=== PATIENT | male | born 1960 | race African-American/Black ===

== ENCOUNTER 2020-11-08 20:26 | Emergency (ER) | payer MEDICARE, MEDICAID ==
[~2020-11-08] VITALS: Ht 182.9 cm; Wt 148.0 kg
[2020-11-08] MEDS ORDERED: FAMOTIDINE 20MG/2ML VIAL IV STA (20:58)
[2020-11-08] MEDS ORDERED: SODIUM CHLORIDE 0.9% 1,000 ML IV ONE (21:00)
[2020-11-08] MEDS ORDERED: ONDANSETRON HCL 4MG/2ML INJ IV ONE (21:00)
[2020-11-08] MEDS ORDERED: HYDROCODONE/ACETAMINOPHEN 5/325MG TABLET PO ONE (21:30)
[2020-11-08] MEDS ORDERED: KETOROLAC 60MG/2ML VIAL IM ONE (21:30)
[2020-11-08] MEDS ORDERED: DIAZEPAM 5 MG TABLET PO ONE (22:45)
[2020-11-08 23:02] LABS: CLARITY URINE CLEAR (CLEAR); COLOR URINE DARK YELLOW (YELLOW); KETONES URINE TRACE (NEGATIVE); LEUKOCYTE ESTERASE URINE TRACE (NEGATIVE); NITRITE URINE NEGATIVE (NEGATIVE); OCCULT BLOOD URINE NEGATIVE (NEGATIVE); PH URINE 6.5 (4.5-8.0); PROTEIN URINE 1+ (NEGATIVE); SPECIFIC GRAVITY URINE 1.023 (1.005-1.030)
[2020-11-08 23:20] LABS: BASOPHILS % 0.5 % (0.0-2.0); EOSINOPHILS % 0.9 % (0.0-5.0); HEMATOCRIT. 40.4 % (42.0-52.0); HEMOGLOBIN. 13.8 g/dL (14.0-18.0); LYMPHOCYTES % 14.5 % (20.0-50.0); MEAN CORPUSCULAR HEMOGLOBIN 29.9 pg (28.0-32.0); MEAN CORPUSCULAR VOLUME 87.6 fL (80.0-94.0); MEAN PLATELET VOLUME 7.8 fl (7.4-10.4); MONOCYTES % 6.3 % (2.0-8.0); NEUTROPHILS % 77.8 % (40.0-76.0); PLATELET 169 x1000/uL (130-400); RED BLOOD CELL COUNT 4.62 mill/uL (4.7-6.1); RED CELL DISTRIBUTION WIDTH 15.3 % (11.6-14.6)
[2020-11-08 23:26] LABS: CHLORIDE 109 mEq/L (98-107)
[2020-11-08 23:30] LABS: PROTHROMBIN TIME 10.8 sec (9.6-11.0)
[2020-11-09] MEDS ORDERED: CYCL10TA7 MT (01:18)
[2020-11-09] MEDS ORDERED: IBUP-2030 MT (01:19)
[2020-11-09] MEDS ORDERED: MORPHINE SULFATE 4 MG/ML CPJ (NOT FOR IM USE) IV ONE (01:30)
[2020-11-09 03:30] VITALS: BP 130/72
== END 2020-11-09 03:45 | disposition home or self-care (01) ==
LOC: ER 20:26
DX: M54.5 Low back pain (principal); I10 Essential (primary) hypertension; E11.9 Type 2 diabetes mellitus without complications; F19.10 Other psychoactive substance abuse, uncomplicated; E86.0 Dehydration; Z79.899 Other long term (current) drug therapy
CPT/HCPCS: 36415; 71045; 74176; 80053; 81003; 83690; 83880; 84484; 85025; 85610; 96361; 96372; 96374; 96375; 99285; J1885; J2405; J3490; J7030

== ENCOUNTER 2020-11-21 15:11 | Emergency (ER) | payer MEDICARE, MEDICAID ==
[~2020-11-21] VITALS: Ht 182.9 cm; Wt 150.0 kg
[~2020-11-21 15:11] MED LIST: CYCL10TA7 MT; IBUP-2030 MT
[2020-11-21] MEDS ORDERED: MORPHINE SULFATE 4 MG/ML CPJ (NOT FOR IM USE) IV ONE (15:45)
[2020-11-21 16:21] LABS: BASOPHILS % 0.6 % (0.0-2.0); EOSINOPHILS % 1.4 % (0.0-5.0); HEMATOCRIT. 42.9 % (42.0-52.0); HEMOGLOBIN. 14.5 g/dL (14.0-18.0); LYMPHOCYTES % 17.9 % (20.0-50.0); MEAN CORPUSCULAR HEMOGLOBIN 29.8 pg (28.0-32.0); MEAN CORPUSCULAR VOLUME 88.2 fL (80.0-94.0); MEAN PLATELET VOLUME 8.2 fl (7.4-10.4); MONOCYTES % 6.7 % (2.0-8.0); NEUTROPHILS % 73.4 % (40.0-76.0); PLATELET 162 x1000/uL (130-400); RED BLOOD CELL COUNT 4.87 mill/uL (4.7-6.1); RED CELL DISTRIBUTION WIDTH 15.2 % (11.6-14.6)
[2020-11-21 16:24] LABS: CHLORIDE 107 mEq/L (98-107)
[2020-11-21 16:25] LABS: PROTHROMBIN TIME 10.8 sec (9.6-11.0)
[2020-11-21 18:34] LABS: CLARITY URINE CLEAR (CLEAR); COLOR URINE YELLOW (YELLOW); KETONES URINE TRACE (NEGATIVE); LEUKOCYTE ESTERASE URINE NEGATIVE (NEGATIVE); NITRITE URINE NEGATIVE (NEGATIVE); OCCULT BLOOD URINE NEGATIVE (NEGATIVE); PROTEIN URINE 1+ (NEGATIVE)
[2020-11-21] MEDS ORDERED: IBUP-2029 MT (19:25)
[2020-11-21] MEDS ORDERED: ACETAMINOPHEN WITH CODEINE 300/30MG TABLET PO ONE (19:45)
[2020-11-21 20:33] VITALS: BP 121/59
== END 2020-11-21 20:38 | disposition home or self-care (01) ==
LOC: ER 15:11
DX: N28.1 Cyst of kidney, acquired (principal); J45.909 Unspecified asthma, uncomplicated; E11.9 Type 2 diabetes mellitus without complications; I10 Essential (primary) hypertension; Z79.899 Other long term (current) drug therapy; Z88.0 Allergy status to penicillin
CPT/HCPCS: 36415; 74176; 80053; 81003; 83690; 84484; 85025; 85610; 96374; 99284; J2270